=== PATIENT | female | born 1965 | race Caucasian/White ===

== ENCOUNTER 2019-05-31 01:01 | Day surgery (SDC) | payer BC, MEDICAID, SELFPAY ==
[2019-05-27 13:09] VITALS: BMI 26.4
--- NOTE | 2019-05-29 14:30 | WPDANESEPP ---
Anes - Eval Pre Procedure Procedure: Operation Date: 05/31/19 11:00 Proposed Procedures p Esophagogastroduodenoscopy & Screening Colonoscopy - León Mclean MD Date/Time: 05/29/19 14:30 Pre Op Diagnosis: Reflux, Neoplasm Screening Patient Data Age: 54 Gender: F Height: 5 ft 4 in Weight: 70 kg Allergies Allergy/AdvReac Type Severity Reaction Status Date / Time latex Allergy Severe TROUBLE Verified 05/27/19 13:03 BREATHING, HIVES Home Medications Medication Instructions Recorded Confirmed Type albuterol sulfate [ProAir HFA] 90 inh INHALATION PRN PRN 05/27/19 05/27/19 History oxcarbazepine [Trileptal] 300 mg PO TID 05/27/19 05/27/19 History sucralfate [Carafate] 100 ml PO PRN 05/27/19 05/27/19 History Patient hx anesthesia problems: none Family hx anesthesia problems: none PMFSH Past Medical History Medical History (Updated 05/29/19 @ 14:27 by Yazmin Hummel CRNA) Anxiety Chronic GERD COPD (chronic obstructive pulmonary disease) Depression Gastric ulcer Overweight (BMI 25.0-29.9) Seizure disorder last seizure 05/12/19 Tobacco abuse Surgical History Surgical History (Updated 05/29/19 @ 14:29 by Yazmin Hummel CRNA) H/O gastric bypass H/O: hysterectomy History of appendectomy History of umbilical hernia repair X 2 Hx laparoscopic cholecystectomy Hx of tonsillectomy Previous section X 3 Social History Social History (Updated 05/29/19 @ 14:31 by Yazmin Hummel CRNA) Smoking packs per day: 1 Smoking cigarettes per day: 20.0 Smoking status: Current every day smoker Tobacco type: cigarettes Alcohol intake: current Exam Day of Procedure 05/29/19 14:30
--- NOTE | 2019-05-31 10:25 | P.HP_ITS ---
History of Present Illness History of Present Illness Consent: Risks, benefits, and alternatives have been discussed and questions answered. Patient agrees to proceed with procedure. Chief complaint: Reflux, Neoplasm Screening Narrative: Lima Villarreal is a 54 year old female with a chronic anastomotic ulcer. She is also due for screening colonoscopy [facility] Past Medical History Medical History Anxiety Chronic GERD COPD (chronic obstructive pulmonary disease) Depression Gastric ulcer Overweight (BMI 25.0-29.9) Seizure disorder last seizure 05/12/19 Tobacco abuse Surgical History Surgical History H/O gastric bypass H/O: hysterectomy History of appendectomy History of umbilical hernia repair X 2 Hx laparoscopic cholecystectomy Hx of tonsillectomy Previous section X 3 Social History Social History Smoking packs per day: 1 Smoking cigarettes per day: 20.0 Smoking status: Current every day smoker Tobacco type: cigarettes Alcohol intake: current Meds Home Medications and Allergies Home Medications Medication Instructions Recorded Confirmed Type albuterol sulfate [ProAir HFA] 90 inh INHALATION PRN PRN 05/27/19 05/27/19 History oxcarbazepine [Trileptal] 300 mg PO TID 05/27/19 05/27/19 History sucralfate [Carafate] 100 ml PO PRN 05/27/19 05/27/19 History Allergies Allergy/AdvReac Type Severity Reaction Status Date / Time latex Allergy Severe TROUBLE Verified 05/31/19 10:03 BREATHING, HIVES Exam Const: General: alert Orientation/consciousness: patient oriented x3 Resp: Auscultation: clear to auscultation bilaterally Cardio: Rhythm: regular rhythm GI: GI Palp: Yes Soft to palpation and No Tenderness to palpation present (GI) Neuro: General: patient oriented x3 Assessment and Plan Assessment and plan (1) Colon cancer screening: Code(s): Z12.11 - Encounter for screening for malignant neoplasm of colon Status: Acute (2) Gastric ulcer: Code(s): K25.9 - Gastric ulcer, unspecified as acute or chronic, without hemorrhage or perforation Status: Acute Assessment and Plan: Colonoscopy with possible biopsy or polypectomy or cautery or injection of substances.EGD with possible biopsy or dilatation or cautery.
[2019-05-31 10:46] VITALS: BP 121/71; PULSE 78; RESP 16; TEMP 37.1; O2SAT 100
[2019-05-31] MEDS: LACTATED RINGERS 1,000 ML 150 ML IV CONT (10:48)
--- NOTE | 2019-05-31 10:54 | WPDANESEFPP ---
Anes - Eval Final PreProcedure Day of Procedure 05/31/19 10:54 Patient weight: overweight Heart: regular rate and rhythm Lungs: clear to auscultation Airway: Mallampati scale class 1 Neurological: alert and oriented Last oral intake: >/= 8 hours ASA classification: III Emergent: no Anesthetic plan: proceed Anesthesia type and monitoring: general GIVS and standard monitoring Informed Consent: The patient's anesthetic plan and its attendant risks and benefits were discussed with the patient/family/POA. Questions were solicited and answers provided to the satisfaction of the patient/family/POA.
[2019-05-31 11:40] VITALS: BP 88/58; PULSE 78; RESP 16; O2SAT 98
[2019-05-31 11:50] VITALS: BP 92/59; PULSE 75; RESP 24; O2SAT 96
[2019-05-31 12:00] VITALS: BP 98/64; PULSE 74; RESP 25; O2SAT 98
== END 2019-05-31 12:10 | disposition home or self-care (01) ==
PROVIDERS: PCP Internal Medicine; Visit Provider Internal Medicine Gastroenterology
PROC: 0DJ08ZZ Inspection of Upper Intestinal Tract, Via Natural or Artificial Opening Endoscopic (ICD-10-PCS; CPT 43235; principal; 2019-05-31 11:00)
DX: Z12.11 Encounter for screening for malignant neoplasm of colon (principal); D12.5 Benign neoplasm of sigmoid colon; K21.9 Gastro-esophageal reflux disease without esophagitis; Z98.84 Bariatric surgery status; Z87.11 Personal history of peptic ulcer disease; J44.9 Chronic obstructive pulmonary disease, unspecified; G40.909 Epilepsy, unspecified, not intractable, without status epilepticus; F17.210 Nicotine dependence, cigarettes, uncomplicated
CPT/HCPCS: 45380; 43235; 88305; J2704; J7120

== ENCOUNTER 2019-10-19 16:03 | Emergency (ER) | payer BC, MEDICAID, SELFPAY ==
[2019-10-19] VITALS (7 sets, daily range): BP systolic 137–148; BP diastolic 80–106; PULSE 61–80; RESP 18–20; TEMP 36.8; O2SAT 100
--- NOTE | ~2019-10-19 | CT_ITS ---
EXAMINATION: CT abdomen pelvis w con INDICATION: Mid abdominal pain TECHNIQUE: Computed tomographic images of the abdomen and pelvis were obtained after the administrati on of 100 cc of Omnipaque 350 intravenous contrast. The dose-length product (DLP) was 456.70 mGy-cm. Automated exposure control and iterative reconstruction technique were employed. COMPARISON: 01/05/2014, 09/27/2010 FINDINGS: Minimal dependent atelectasis is present in the lung bases. The heart size is normal. There our surgical changes in the stomach. The liver, spleen, pancreas, gallbladder, and adrenal glands ar e normal. There is chronic intrahepatic and extrahepatic biliary dilatation measuring up to 11 mm wit h abrupt cut off of the distal common bile duct in the head of the pancreas. These findings are not s ignificantly changed since the 2010 comparison. The kidneys are unremarkable. There is calcified athe rosclerosis of the aorta and many of the other arteries. There is no free intraperitoneal gas or evid ence of bowel obstruction. No pathologically enlarged abdominal or pelvic lymph nodes are identified. A moderate volume of colonic stool is present. There is mild lumbar spondylosis. IMPRESSION: 1. No CT correlate for the patient's symptoms. 2. Chronic intrahepatic and extrahepatic biliary dilatation without significant change since 2010, li catherine clinically insignificant given normal liver enzymes in absence of interval change. Reviewed, dictated and finalized at location A. IMPRESSION: 1. No CT correlate for the patient's symptoms. 2. Chronic intrahepatic and extrahepatic biliary dilatation without significant change since 2010, likely clinically insignificant given normal liver enzymes in absence of interval change.
[2019-10-19 16:54] LABS: Basophils Absolute Auto 0.1 K/mm3 (0.0-0.1); Eosinophils Absolute Auto 0.2 K/mm3 (0-0.3); Eosinophils Percent Auto 2.2 % (0-4.4); Hematocrit 35.3 % (37.0-47.0); Hemoglobin 10.1 g/dL (12.0-15.0); Immature Granulocyte Absolute 0.04 K/mm3 (0.00-0.031); Immature Granulocyte Percent A 0.4 % (0-0.5); Immature Platelet Fraction Pct 7.7 % (0.9-11.2); Lymphocytes Absolute Auto 2.99 K/mm3 (0.9-3.2); Lymphocytes Percent Auto 28.3 % (18.3-44.2); Mean Corpuscular HGB Conc 28.6 g/dl (32-36); Mean Corpuscular Hemoglobin 19.5 pg (26-34); Mean Corpuscular Volume 68.3 fl (80-100); Mean Platelet Volume 11.9 fl (7.4-10.4); Monocytes Absolute Auto 0.6 K/mm3 (0.1-0.6); Monocytes Percent Auto 5.7 % (2.6-8.5); Neutrophils Absolute Auto 6.6 K/mm3 (1.3-6.7); Neutrophils Percent Auto 62.4 % (45.5-73.1); Platelet Count Result 332 k/mm3 (150-375); Red Blood Count 5.17 M/mm3 (4.2-5.4); Red Cell Distribution Width 20.1 % (11.5-14.5); White Blood Count 10.6 K/mm3 (4.5-10.0)
[2019-10-19 16:57] LABS: Add Urine Microscopic? YES; Appearance Urine Clear (Clear); Bacteria Urine Trace /hpf; Bilirubin Urine 1+ (Negative); Blood Urine Negative (Negative); Color Urine Yellow (Yellow); Glucose Urine UA Negative (Negative); Ketones Urine Negative (Negative); Leukocyte Esterase Ur Trace LEU/UL (Negative); Nitrate Urine Negative (Negative); Protein Urine 1+ mg/dL (Negative); RBC Urine 0-2 /hpf (0-2); Squamous Epithelial Cell Urine Few /hpf (Few); WBC Urine 0-3 /hpf
[2019-10-19 17:01] LABS: Specific Grav Ur 1.056 (1.001-1.035)
[2019-10-19 17:05] LABS: Alanine Aminotransferase 13 U/L (4-35); Albumin Level 4.1 g/dL (3.5-5.1); Alkaline Phosphatase 100 U/L (38-126); Aspartate Amino Transferase 23 U/L (14-36); Bilirubin,Total 0.1 mg/dL (0.2-1.3); Blood Urea Nitrogen 17 mg/dL (7-17); Carbon Dioxide 23 mmol/L (22-30); Chloride 112 mmol/L (98-107); Estimated CRCL calculation 84 ml/min; Estimated Glomerular Filt Rate > 60; Glucose 96 mg/dL (65-105); Lipase 279 U/L (23-300); Potassium 3.7 mmol/L (3.4-5.0); Sodium 139 mmol/L (137-145)
[2019-10-19 17:13] LABS: Hypochromasia 1+ (NORMAL); Platelet Estimate Adequate (Adequate)
[2019-10-19 17:14] LABS: Anisocytosis 3+ (NORMAL)
--- NOTE | 2019-10-19 18:57 | ED.ABDPAIN ---
HPI - Abdominal Pain General Chief Complaint: Abdominal Pain Stated Complaint: Possible Ulcers, ABD Pain Time Seen by Provider: 10/19/19 17:46 Source: patient Mode of arrival: ambulatory Limitations: no limitations History of Present Illness HPI narrative: This patient is a 54 year old female with history of ulcer, GERD who presents for evaluation of epigastric abdominal pain since Friday. She states her pain has been constant. She has been taking carafate with out relief. She has also been taking aspirin and ibuprofen and tylenol for her pain. She had 1 episode of emesis yesterday that she reports was coffee ground. She reports nausea when she eats. She states she had a bowel movement this morning that was dark brown. She denies fever, chills or dizziness. MD elicited complaint: abdominal pain Related Data Home Medications Medication Instructions Recorded Confirmed albuterol sulfate [ProAir HFA] 90 inh INHALATION PRN PRN 05/27/19 05/27/19 oxcarbazepine [Trileptal] 300 mg PO TID 05/27/19 05/27/19 sucralfate [Carafate] 100 ml PO PRN 05/27/19 05/27/19 Allergies Allergy/AdvReac Type Severity Reaction Status Date / Time latex Allergy Severe TROUBLE Verified 10/19/19 17:50 BREATHING, HIVES Review of Systems Review of Systems: All systems reviewed & are unremarkable except as noted in HPI and below Constitutional: Constitutional: Denies chills and Denies fever(s) Eyes: Eyes: Reports no additional eye complaints Respiratory: Respiratory: Denies cough and Denies dyspnea Gastrointestinal: Gastrointestinal: Reports abdominal pain, Reports diarrhea, Reports nausea and Reports vomiting Genitourinary: Genitourinary: Reports no additional female genitourinary complaints Musculoskeletal: Musculoskeletal: Reports no additional musculoskeletal complaints [facility]LY [facility] Past Medical History Medical History Anxiety Chronic GERD COPD (chronic obstructive pulmonary disease) Depression Gastric ulcer Overweight (BMI 25.0-29.9) Seizure disorder last seizure 05/12/19 Tobacco abuse Social History Social History Smoking packs per day: 1 Smoking cigarettes per day: 20.0 Smoking status: Current every day smoker Tobacco type: cigarettes Alcohol intake: current Exam Narrative: Exam Narrative: GENERAL: Well-appearing, well-nourished, and in no acute distress. HEAD: Normocephalic, atraumatic EYES: PERRLA and EOMI, conjunctiva clear without discharge THROAT:Mucous membranes moist, Oropharynx normal without erythema, exudate, peritonsillar swelling or fluctuance NECK: Supple, without lymphadenopathy or mass RESPIRATORY: No respiratory distress, Airway patent, Respirations non-labored, Clear to auscultation without rales, rhonchi or wheeze HEART: Regular rate and rhythm. No murmur heard. Normal peripheral pulses. ABDOMEN: Soft, nontender, nondistended, normal active bowel sounds. No masses. No rebound or guarding, No organomegaly. EXTREMITIES: No edema, normal strength with full range of motion. SKIN: Warm, dry, normal color without rash NEURO: Alert and oriented x3. CN 2-12 grossly intact. No focal deficits. PSYCH: Normal mood and affect. GI: Other: brown stool , guaic negative Course Reevaluation(s) Reevaluation #1: Patient states the GI cocktail really helped. Date: 10/19/19 Time: 20:46 Consultations Consultation #1: I talked to Dr. Mclean about patient CT And labs. He is agreeable for me to start PPI with carafate and follow up . Date: 10/19/19 Time: 19:52 Vital Signs Vital signs: Vital Signs Temperature 98.3 F 10/19/19 16:30 Pulse Rate 80 10/19/19 16:30 Respiratory Rate 18 10/19/19 16:30 Blood Pressure 138/97 H 10/19/19 16:30 Pulse Oximetry 100 10/19/19 16:30 Temperature 98.3 F 10/19/19 16:30 Pulse Rate 65 10/19/19 19:26 Respiratory Rate 20
[2019-10-19] MEDS: ONDANSETRON INJ 4 MG/2 ML VIAL IV PUSH ×2 (18:59→20:19)
[2019-10-19] MEDS: PANTOPRAZOLE SODIUM IV 40 MG VIAL IV PUSH (18:59)
[2019-10-19] MEDS: BELLADONNA ALK/PHENOB ELIX 10 ML, MAG HYDROX/ALUMINUM HYD/SIMETH 30 ML, LIDOCAINE HCL 2... PO (19:44)
--- NOTE | 2019-10-19 20:20 | ECG_ITS ---
Measurements Intervals [place] Rate: 60 P: 41 FL: 172 QRS: 62 QRSD: 93 T: 49 QT: 420 QTc: 422 Interpretive Statements SINUS RHYTHM NORMAL ECG Electronically Signed On 10-20-2019 13:46:59 CDT by Greyson Cedeño D.O.
== END 2019-10-19 22:00 | disposition home or self-care (01) ==
PROVIDERS: Emergency Medicine; Emergency Provider General Practice; PCP Internal Medicine
DX: K27.9 Peptic ulcer, site unspecified, unspecified as acute or chronic, without hemorrhage or perforation (principal); F17.210 Nicotine dependence, cigarettes, uncomplicated; F41.9 Anxiety disorder, unspecified; K21.9 Gastro-esophageal reflux disease without esophagitis; J44.9 Chronic obstructive pulmonary disease, unspecified; F32.9 Major depressive disorder, single episode, unspecified; G40.909 Epilepsy, unspecified, not intractable, without status epilepticus
CPT/HCPCS: 36415; 74177; 80053; 81001; 83690; 85025; 85055; 93005; 96374; 96375; 96376; 99284; A9270; C9113; J1170; J2405; Q9967

== ENCOUNTER 2019-11-03 00:53 | Outpatient (CLI) | payer BC, MEDICAID, SELFPAY ==
[2019-11-03 19:00] LABS: SARS-CoV-2 RNA PCR Negative
== END 2019-11-03 00:54 | disposition home or self-care (01) ==
LOC: ANHCOVIDDT 00:54
PROVIDERS: PCP Internal Medicine; Visit Provider Internal Medicine Gastroenterology
DX: Z01.812 Encounter for preprocedural laboratory examination (principal); Z11.59 Encounter for screening for other viral diseases
CPT/HCPCS: 87635; C9803; U0003

== ENCOUNTER 2019-11-05 03:02 | Day surgery (SDC) | payer BC, MEDICAID, SELFPAY ==
[2019-10-28 13:28] VITALS: BMI 25.7
[2019-11-05 08:38] VITALS: BP 133/83; PULSE 73; RESP 18; TEMP 37.1; O2SAT 100; BMI 27.0
--- NOTE | 2019-11-05 08:57 | WPDANESEPPF ---
Anes - Initial Pre Proc Eval Procedure: Operation Date: 11/05/19 09:30 Proposed Procedures p Esophagogastroduodenoscopy - León Mclean MD Date/Time: 11/05/19 08:57 Surgeon: León Mclean MD Pre Op Diagnosis: Epigastric Pain Patient Data Age: 54 Gender: F Height: 5 ft 5 in Weight: 73.7 kg Last Vital Signs Temp 37.1 C 11/05/19 08:38 Pulse 73 11/05/19 08:38 Resp 18 11/05/19 08:38 BP 133/83 11/05/19 08:38 Pulse Ox 100 11/05/19 08:38 Allergies Allergy/AdvReac Type Severity Reaction Status Date / Time latex Allergy Severe TROUBLE Verified 10/19/19 17:50 BREATHING, HIVES Home Medications Medication Instructions Recorded Confirmed Type albuterol sulfate [ProAir HFA] 90 inh INHALATION PRN PRN 05/27/19 11/05/19 History oxcarbazepine [Trileptal] 300 mg PO TID 05/27/19 11/05/19 History sucralfate [Carafate] 100 ml PO PRN 05/27/19 11/05/19 History alum-mag hydroxide-simeth [Maalox 10 ml PO QID PRN #355 ml 10/19/19 11/05/19 Rx Advanced] lidocaine HCl [Lidocaine Viscous] 10 ml MUCOUS MEM BID PRN #100 ml 10/19/19 11/05/19 Rx omeprazole 40 mg PO DAILY #20 cap 10/19/19 11/05/19 Rx Patient hx anesthesia problems: none Family hx anesthesia problems: none PMFSH Past Medical History Medical History Anxiety Chronic GERD COPD (chronic obstructive pulmonary disease) Depression Gastric ulcer Overweight (BMI 25.0-29.9) Seizure disorder last seizure 05/12/19 Tobacco abuse Surgical History Surgical History H/O gastric bypass H/O: hysterectomy History of appendectomy History of umbilical hernia repair X 2 Hx laparoscopic cholecystectomy Hx of tonsillectomy Previous section X 3 Social History Social History Smoking packs per day: 1 Smoking cigarettes per day: 20.0 Smoking status: Current every day smoker Tobacco type: cigarettes Alcohol intake: current Anes - Eval Final PreProcedure Day of Procedure 11/05/19 08:57 Patient weight: overweight Heart: regular rate and rhythm Lungs: clear to auscultation Airway: Mallampati scale class II Neurological: alert and oriented Last oral intake: >/= 8 hours ASA classification: III Emergent: no Anesthetic plan: proceed Anesthesia type and monitoring: general GIVS and standard monitoring Informed Consent: The patient's anesthetic plan and its attendant risks and benefits were discussed with the patient/family/POA. Questions were solicited and answers provided to the satisfaction of the patient/family/POA.
[2019-11-05] MEDS: LACTATED RINGERS 1,000 ML 150 ML IV CONT (09:00)
--- NOTE | 2019-11-05 09:02 | PM.HPGS ---
History of Present Illness History of Present Illness Consent: Risks, benefits, and alternatives have been discussed and questions answered. Patient agrees to proceed with procedure. Chief complaint: Epigastric Pain Narrative: Lima Villarreal is a 54 year old female suffering from severe epigastric pain that occurs several times daily. This began over a month ago. She has been chronically on Carafate for chronic gastric ulcer and her gastroenterostomy but actually w it was smaller when last examined few months ago. After recent visit emergency room she was started on a PPI, omeprazole however her symptoms persist. This has resulted in decreased oral intake and some weight loss PMFSH Past Medical History Medical History Anxiety Chronic GERD COPD (chronic obstructive pulmonary disease) Depression Gastric ulcer Overweight (BMI 25.0-29.9) Seizure disorder last seizure 05/12/19 Tobacco abuse Surgical History Surgical History H/O gastric bypass H/O: hysterectomy History of appendectomy History of umbilical hernia repair X 2 Hx laparoscopic cholecystectomy Hx of tonsillectomy Previous section X 3 Social History Social History Smoking packs per day: 1 Smoking cigarettes per day: 20.0 Smoking status: Current every day smoker Tobacco type: cigarettes Alcohol intake: current Meds Home Medications and Allergies Home Medications Medication Instructions Recorded Confirmed Type albuterol sulfate [ProAir HFA] 90 inh INHALATION PRN PRN 05/27/19 11/05/19 History oxcarbazepine [Trileptal] 300 mg PO TID 05/27/19 11/05/19 History sucralfate [Carafate] 100 ml PO PRN 05/27/19 11/05/19 History alum-mag hydroxide-simeth [Maalox 10 ml PO QID PRN #355 ml 10/19/19 11/05/19 Rx Advanced] lidocaine HCl [Lidocaine Viscous] 10 ml MUCOUS MEM BID PRN #100 ml 10/19/19 11/05/19 Rx omeprazole 40 mg PO DAILY #20 cap 10/19/19 11/05/19 Rx Allergies Allergy/AdvReac Type Severity Reaction Status Date / Time latex Allergy Severe TROUBLE Verified 10/19/19 17:50 BREATHING, HIVES Vital Signs Vital Signs - 24 hr 11/05/19 08:38 Temperature 37.1 C Pulse Rate 73 Respiratory Rate 18 Blood Pressure 133/83 Pulse Oximetry 100 Exam Const: General: alert Orientation/consciousness: patient oriented x3 Resp: Auscultation: clear to auscultation bilaterally Cardio: Rhythm: regular rhythm GI: GI Palp: Yes Soft to palpation and No Tenderness to palpation present (GI) Neuro: General: patient oriented x3 Assessment and Plan Assessment and plan (1) Epigastric pain: Code(s): R10.13 - Epigastric pain Status: Acute Assessment and Plan: EGD with possible biopsy or dilatation or cautery.
[2019-11-05 09:51] VITALS: BP 123/67; PULSE 70; RESP 20; O2SAT 98
[2019-11-05 10:01] VITALS: BP 124/67; PULSE 72; RESP 18; O2SAT 100
[2019-11-05 10:11] VITALS: BP 127/98; PULSE 65; RESP 19; O2SAT 100
== END 2019-11-05 10:25 | disposition home or self-care (01) ==
PROVIDERS: PCP Internal Medicine; Visit Provider Internal Medicine Gastroenterology
PROC: 0DJ08ZZ Inspection of Upper Intestinal Tract, Via Natural or Artificial Opening Endoscopic (ICD-10-PCS; CPT 43235; principal; 2019-11-05 09:30)
DX: K25.3 Acute gastric ulcer without hemorrhage or perforation (principal); K21.9 Gastro-esophageal reflux disease without esophagitis; Z98.0 Intestinal bypass and anastomosis status; G40.909 Epilepsy, unspecified, not intractable, without status epilepticus; J44.9 Chronic obstructive pulmonary disease, unspecified; F32.9 Major depressive disorder, single episode, unspecified; E66.3 Overweight; Z68.27 Body mass index [BMI] 27.0-27.9, adult; F17.210 Nicotine dependence, cigarettes, uncomplicated; Z79.899 Other long term (current) drug therapy; Z98.84 Bariatric surgery status; Z91.040 Latex allergy status
CPT/HCPCS: 43239; 88305; J2704; J7120

== ENCOUNTER 2021-04-05 01:30 | Day surgery (SDC) | payer BC, SELFPAY ==
[2021-04-04 11:33] VITALS: BMI 28.3
--- NOTE | 2021-04-05 12:14 | WPDANESEPPF ---
Anes - Initial Pre Proc Eval Procedure: Operation Date: 04/05/21 13:30 Proposed Procedures p Esophagogastroduodenoscopy - León Mclean MD Date/Time: 04/05/21 12:14 Surgeon: León Mclean MD Pre Op Diagnosis: peptic ulcer disease, anemia Patient Data Age: 56 Gender: F Height: 1.63 m Weight: 75 kg Allergies Allergy/AdvReac Type Severity Reaction Status Date / Time latex Allergy Severe TROUBLE Verified 04/05/21 12:18 BREATHING, HIVES Home Medications Medication Instructions Recorded Confirmed Type albuterol sulfate [ProAir HFA] 90 inh INHALATION PRN PRN 05/27/19 04/04/21 History oxcarbazepine [Trileptal] 300 mg PO TID 05/27/19 04/04/21 History sucralfate [Carafate] 100 ml PO PRN PRN 05/27/19 04/04/21 History alum-mag hydroxide-simeth [Maalox 10 ml PO QID PRN #355 ml 10/19/19 04/04/21 Rx Advanced] lidocaine HCl [Lidocaine Viscous] 10 ml MUCOUS MEM BID PRN #100 ml 10/19/19 04/04/21 Rx omeprazole 40 mg PO DAILY #20 cap 10/19/19 04/04/21 Rx ferrous sulfate [FeroSul] 325 mg PO DAILY 04/04/21 04/04/21 History Patient hx anesthesia problems: none Family hx anesthesia problems: none Results Review: All pre-operative results and documents have been reviewed as part of the pre-operative evaluation. ON LICENSE OF [facility] Past Medical History Medical History (Updated 11/05/19 @ 09:04 by León Mclean MD) Anxiety Chronic GERD COPD (chronic obstructive pulmonary disease) Depression Gastric ulcer Overweight (BMI 25.0-29.9) Seizure disorder last seizure 05/12/19 Tobacco abuse Surgical History Surgical History H/O gastric bypass H/O: hysterectomy History of appendectomy History of umbilical hernia repair X 2 Hx laparoscopic cholecystectomy Hx of tonsillectomy Previous section X 3 Social History Social History Smoking packs per day: 1 Smoking cigarettes per day: 20.0 Years smoked: 38 Smoking pack-years: 38.00 Smoking status: Current every day smoker Tobacco type: cigarettes Alcohol intake: current Substance use: never Substance use type: does not use Living arrangements: with family Spiritual care concerns: No Anes - Eval Final PreProcedure Day of Procedure 04/05/21 12:14 Patient weight: overweight Heart: regular rate and rhythm Lungs: clear to auscultation and normal air movement Airway: Mallampati scale class III Neurological: alert and oriented Last oral intake: >/= 8 hours ASA classification: III Emergent: no Anesthetic plan: proceed Anesthesia type and monitoring: general GIVS and standard monitoring Results Review: All pre-operative results and documents have been reviewed as part of the pre-operative evaluation. Informed Consent: The patient's anesthetic plan and its attendant risks and benefits were discussed with the patient/family/POA. Questions were solicited and answers provided to the satisfaction of the patient/family/POA.
[2021-04-05] MEDS: LACTATED RINGERS 1,000 ML 150 ML IV CONT (12:35)
[2021-04-05 12:41] VITALS: BP 134/88; PULSE 85; RESP 20; TEMP 36.8; O2SAT 98
--- NOTE | 2021-04-05 13:04 | PM.HPGS ---
History of Present Illness History of Present Illness Consent: Risks, benefits, and alternatives have been discussed and questions answered. Patient agrees to proceed with procedure. Chief complaint: peptic ulcer disease, anemia Narrative: Lima Villarreal is a 56 year old female Referred for investigation of severe iron deficiency anemia. She is known to have a chronic ulcer at her gastroenterostomy. She in fact has seen for possible resection and revision, but his office will not schedule a surgical procedure until she can quit smoking. She states she has not been able to do that. She has just recently been started on vitamin-D and iron as her iron level is low, she believes is 7 Review of Systems Review of Systems: All systems reviewed & are unremarkable except as noted in HPI and below PMFSH Past Medical History Medical History Anxiety Chronic GERD COPD (chronic obstructive pulmonary disease) Depression Gastric ulcer Overweight (BMI 25.0-29.9) Seizure disorder last seizure 05/12/19 Tobacco abuse Surgical History Surgical History H/O gastric bypass H/O: hysterectomy History of appendectomy History of umbilical hernia repair X 2 Hx laparoscopic cholecystectomy Hx of tonsillectomy Previous section X 3 Social History Social History Smoking packs per day: 1 Smoking cigarettes per day: 20.0 Years smoked: 38 Smoking pack-years: 38.00 Smoking status: Current every day smoker Tobacco type: cigarettes Alcohol intake: current Substance use: never Substance use type: does not use Living arrangements: with family Spiritual care concerns: No Meds Home Medications and Allergies Home Medications Medication Instructions Recorded Confirmed Type albuterol sulfate [ProAir HFA] 90 inh INHALATION PRN PRN 05/27/19 04/04/21 History oxcarbazepine [Trileptal] 300 mg PO TID 05/27/19 04/05/21 History sucralfate [Carafate] 100 ml PO PRN PRN 05/27/19 04/04/21 History alum-mag hydroxide-simeth [Maalox 10 ml PO QID PRN #355 ml 10/19/19 04/04/21 Rx Advanced] lidocaine HCl [Lidocaine Viscous] 10 ml MUCOUS MEM BID PRN #100 ml 10/19/19 04/04/21 Rx omeprazole 40 mg PO DAILY #20 cap 10/19/19 04/04/21 Rx ferrous sulfate [FeroSul] 325 mg PO DAILY 04/04/21 04/04/21 History Allergies Allergy/AdvReac Type Severity Reaction Status Date / Time latex Allergy Severe TROUBLE Verified 04/05/21 12:18 BREATHING, HIVES Vital Signs Vital Signs - 24 hr 04/05/21 12:41 Temperature 36.8 C Pulse Rate 85 Respiratory Rate 20 Blood Pressure 134/88 Pulse Oximetry 98 Exam Const: General: alert Orientation/consciousness: patient oriented x3 Resp: Auscultation: clear to auscultation bilaterally Cardio: Rhythm: regular rhythm GI: GI Palp: Yes Soft to palpation and No Tenderness to palpation present (GI) Neuro: General: patient oriented x3 Assessment and Plan Assessment and plan (1) Gastric ulcer: Code(s): K25.9 - Gastric ulcer, unspecified as acute or chronic, without hemorrhage or perforation Status: Acute Assessment and Plan: EGD with possible biopsy or dilatation or cautery.
[2021-04-05] MEDS: SIMETHICONE ORAL SUSPENSION 20 MG/0.3 ML 30 ML BOTTLE 0.6 ML IRRIGATION (13:17)
[2021-04-05 13:22] VITALS: BP 106/56; PULSE 76; RESP 20; O2SAT 98
[2021-04-05 13:32] VITALS: BP 121/64; PULSE 79; RESP 20; O2SAT 100
[2021-04-05 13:42] VITALS: BP 136/84; PULSE 75; RESP 20; O2SAT 100
== END 2021-04-05 13:57 | disposition home or self-care (01) ==
PROVIDERS: PCP Internal Medicine; Visit Provider Internal Medicine Gastroenterology
PROC: 0DJ08ZZ Inspection of Upper Intestinal Tract, Via Natural or Artificial Opening Endoscopic (ICD-10-PCS; CPT 43235; principal; 2021-04-05 13:30)
DX: D50.9 Iron deficiency anemia, unspecified (principal); K92.1 Melena; K21.9 Gastro-esophageal reflux disease without esophagitis; K29.60 Other gastritis without bleeding; Z98.84 Bariatric surgery status; Z87.11 Personal history of peptic ulcer disease; J44.9 Chronic obstructive pulmonary disease, unspecified; F41.8 Other specified anxiety disorders; G40.909 Epilepsy, unspecified, not intractable, without status epilepticus; Z79.51 Long term (current) use of inhaled steroids; F17.210 Nicotine dependence, cigarettes, uncomplicated
CPT/HCPCS: 43235; J2001; J2704; J7120